=== PATIENT | female | born 1975 | race African-American/Black ===

== ENCOUNTER 2017-04-23 08:49 | Day surgery (SDC) | payer BC ==
[~2017-04-23] VITALS: Ht 172.7 cm; Wt 79.8 kg
[2017-04-23] VITALS (11 sets, daily range): BP systolic 148–184; BP diastolic 83–108
--- NOTE | 2017-04-23 08:23 | Anethesia Preoperative Eval ---
Anesthesia Pre-op PMH/ROS General Date of Evaluation: Apr 23, 2017 Time of Evaluation: 08:22 Anesthesiologist: roman ASA Score: ASA 3 Mallampati Score Class I : Soft palate, uvula, fauces, pillars visible Class II: Soft palate, uvula, fauces visible Class III: Soft palate, base of uvula visible Class IV: Only hard plate visible Mallampati Classification: Class II Surgeon: vinh Diagnosis: anmia, abdominal pain Surgical Procedure: gd/colonoscopy Anesthesia History: none Family History: no anesthesia problems Allergies: Coded Allergies: No Known Allergies (Unverified , 04/23/17) Medications: see eMAR Past Medical History Gastrointestinal/Genitourinary: Reports: other - fibroids Endocrine: Reports: hypothyroidism Anesthesia Pre-op Phys. Exam Physician Exam Constitutional: NAD Neurologic: CN 2-12 intact Cardiovascular: RRR Respiratory: CTA Gastrointestinal: S/NT/ND Airway Exam Mallampati Score: Class II MO: full Neck: supple TMD: 2fb ROM: full Teeth: intact Anesthesia Pre-op A/P Labs Labs Test 04/23/17 09:03 Urine HCG, Qualitative Negative Risk Assessment & Plan Assessment: asa3 Plan: mac Status Change Before Surgery: No Pre-Antibiotics Drug: GISSELL Jerry Apr 23, 2017 08:23
[2017-04-23] MEDS ORDERED: Hydromorphone 0.5mg/0.5ml inj IVP PRN (09:30)
[2017-04-23] MEDS ORDERED: Propofol 200mg/20ml IV ONE (09:30)
[2017-04-23] MEDS ORDERED: Lidocaine 1% MPF 10mg/ml 5ml ONE (09:30)
[2017-04-23] MEDS ORDERED: Midazolam 2mg/2ml Inj IVP PRN (09:30)
[2017-04-23] MEDS ORDERED: Atropine Inj 1mg/10ml Syr IV PRN (09:30)
[2017-04-23] MEDS ORDERED: LR 1000ml ONE (09:30)
[2017-04-23] MEDS ORDERED: DiphenhydrAMINE 50mg/ml Inj IVP PRN (09:30)
--- NOTE | 2017-04-23 09:31 | Pre-Procedure Note/Attestation ---
Pre-Procedure Note/Attestation Complete Prior to Procedure Planned Procedure: not applicable Procedure Narrative: EGD/Colon Indications for Procedure Pre-Operative Diagnosis: abd pain , anemia Attestation I attest that I discussed the nature of the procedure; its benefits; risks and complications; and alternatives (and the risks and benefits of such alternatives ), prior to the procedure, with the patient (or the patient's legal enrollment eligibility representative). I attest that, if there was a reasonable possibility of needing a blood transfusion, the patient (or the patient's legal enrollment eligibility representative) was given the [facility] standardized written summary, pursuant to the Oscar Wander Blood Safety Act ([place] Health and Safety Code # 1645, as amended). I attest that I re-evaluated the patient just prior to the surgery and that there has been no change in the patient's H&P, except as documented below: CHAPIN CORTEZ Apr 23, 2017 09:31
[2017-04-23] MEDS ORDERED: SYNTHROID25 MCG ORAL (09:32)
[2017-04-23] MEDS ORDERED: AMOXICILLIN125 MG ORAL (09:32)
--- NOTE | 2017-04-23 10:24 | Short Stay Surgery H&P ---
History of Present Illness History of Present Illness Chief Complaint see typed H&P HPI Albina Mendoza is a 41 year old female who was admitted on for Anemia, Abdominal Pain Patient History Allergies: Coded Allergies: No Known Allergies (Unverified , 04/23/17) PAST MEDICAL HISTORY: Past Surgeries: Social History: Medication History Scheduled Amoxicillin (Amoxicillin), Unknown Dose ORAL TWICE A DAY, (Reported) Levothyroxine Sodium* (Synthroid*), 25 MCG ORAL DAILY, (Reported) Physical Exam Vital Signs Last Vital Signs Date Time Temp Pulse Resp B/P (MAP) Pulse Ox O2 Delivery O2 Flow Rate FiO2 04/23/17 09:29 97.0 58 17 153/99 100 Labs Laboratory Tests Test 04/23/17 09:03 Urine HCG, Qualitative Negative Plan Attestation Are the patient's medical conditions optimized for surgery? CHAPIN CORTEZ Apr 23, 2017 10:24
--- NOTE | 2017-04-23 10:25 | Endoscopy Procedure Note ---
Endoscopy Procedure Note Indication for Procedure: anemia, abd pain Procedures Performed: EGD, colonoscopy Operative Findings/Diagnosis: nl egd, bx'd antrum, normal colon and TI, bx'd R/ L colon Specimen: yes Pt Tolerated Procedure Well: Yes Estimated Blood Loss: none Anesthesiologist: Javier Abernathy Anesthesia: MAC Medication Given: see anesthesia record Implant(s) used?: No 50 yrs or older w/o bx or poly: Not Applicable 10yrs. F/U not recommended: Not Applicable If not recommended, why?: CHAPIN CORTEZ Apr 23, 2017 10:25
--- NOTE | 2017-04-23 10:26 | Brief Operative Note ---
Immediate Post Operative Note Operative Note Chief Complaint: anemia Pre-op Diagnosis: abd pain , anemia Procedure: EGD/bx, colon/bx Post-op Diagnosis: normal EGD and colon Post-op Diagnosis: same as pre-op Surgeon: vinh Anesthesiologist: Javier Abernathy Anesthesia: MAC Specimen: yes Complications: none Condition: stable Fluids: see anesth record Estimated Blood Loss: none Drains: none Implant(s) used?: No CHAPIN CORTEZ Apr 23, 2017 10:26
--- NOTE | 2017-04-23 10:59 | Immediate Post-Op Evaluation ---
Immediate Post-Op Evalulation Immediate Post-Op Evalulation Procedure: egd/colonoscopy Date of Evaluation: Apr 23, 2017 Time of Evaluation: 10:43 IV Fluids: lr 250ml Blood Products: none Estimated Blood Loss: negligible Blood Pressure Systolic: 169 Blood Pressure Diastolic: 108 Pulse Rate: 67 Respiratory Rate: 18 O2 Sat by Pulse Oximetry: 99 Temperature (Fahrenheit): 97.0 Pain Score (1-10): 0 Nausea: No Vomiting: No Complications none Patient Status: awake, reacts, patent Hydration Status: adequate Drug: GISSELL Jerry Apr 23, 2017 10:59
--- NOTE | 2017-04-23 11:02 | 48 Hour Post Anesthesia Eval ---
Post Anesthesia Evaluation Procedure: egd/colonoscopy Date of Evaluation: Apr 23, 2017 Time of Evaluation: 11:00 Blood Pressure Systolic: 165 0: 108 Pulse Rate: 67 Respiratory Rate: 18 Temperature (Fahrenheit): 97.0 O2 Sat by Pulse Oximetry: 99 Airway: patent Nausea: No Vomiting: No Pain Intensity: 0 Hydration Status: adequate Cardiopulmonary Status: none Mental Status/LOC: patient returned to baseline Post-Anesthesia Complications: none Follow-up care needed: N/A GISSELL PHIPPS Apr 23, 2017 11:02
--- NOTE | 2017-04-23 21:30 | Procedure Note ---
DATE OF PROCEDURE: 04/23/2017 GASTROENTEROLOGY PROCEDURE REPORT SURGEON: Keith Cardenas M.D. PRE-ENDOSCOPIC DIAGNOSES: 1. Anemia. 2. Abdominal pain. POST-ENDOSCOPIC DIAGNOSES: 1. Normal upper endoscopy with healed duodenal erosions, which were seen previously. 2. Status post random biopsy of the antrum. 3. Normal colonoscopy as well as terminal ileum with no evidence of ulcerations or abnormalities. 4. Status post random biopsies of the right colon and left colon. Description Of Procedure: The procedure, its risks, indications, alternatives, and possible complications were explained to the patient and an informed consent was obtained. The patient was then sedated in the left lateral decubitus position. A diagnostic upper endoscope was introduced through the oropharynx and advanced to the duodenum. The endoscope was then gradually withdrawn and the mucosa was examined carefully. The examination of the upper gastrointestinal mucosa did not reveal any abnormalities. The previously seen duodenal erosions were healed. Random biopsy of the antrum was sent to pathology for review. The endoscope was removed and the colonoscope was introduced in to the rectum and advanced to the terminal ileum. The terminal ileum mucosa as well as a colonic mucosa were entirely normal. Random biopsy of the right colon and left colon were sent to pathology for review. Retroflexed view of the rectum was unremarkable. The colonoscope was removed and the patient was sent to recovery in good condition. COMPLICATIONS: None. RECOMMENDATIONS: 1. Resume oral diet. 2. Follow up biopsy results. 3. Outpatient followup. Thank you for asking me to participate in the care of this patient. Keith Cardenas M.D. DR: ALYSSA JOB#: [id number] CC: Yohannes Starr M.D.; Fax#: [phone]
== END 2017-04-23 12:40 | disposition home or self-care (01) ==
LOC: GAS 08:49
DX: R10.9 Unspecified abdominal pain (principal); D64.9 Anemia, unspecified; K29.50 Unspecified chronic gastritis without bleeding; E03.9 Hypothyroidism, unspecified; M47.892 Other spondylosis, cervical region; Z83.3 Family history of diabetes mellitus; Z87.11 Personal history of peptic ulcer disease
CPT/HCPCS: 43239; 45380; 81025; J0360; J2704; J7120; 94003; 94150